=== PATIENT | female | born 1965 | race Caucasian/White ===

== ENCOUNTER 2020-05-31 23:55 | Emergency (ER) | payer BC ==
[~2020-05-31] VITALS: Ht 157.5 cm; Wt 54.0 kg
--- NOTE | 2020-06-01 00:24 | NUR ---
PT IM ROOM, C/O 15+ EPISODES OF VOMITING AFTER CHEMO TODAY FOR BREAST CANCER
[2020-06-01] MEDS ORDERED: ONDANSETRON 2MG/ML, 2ML ONE (00:30)
[2020-06-01] MEDS ORDERED: SODIUM CHLORIDE 0.9% 1,000ML IVBOLUS ONE (01:00)
[2020-06-01] MEDS ORDERED: ONDANSETRON 2MG/ML, 2ML IVPush ONE (01:00)
[2020-06-01 01:03] LABS: MEAN CORPUSCULAR HEMOGLOBIN 29.7 pg (27.0-34.8); MEAN CORPUSCULAR HGB CONC 33.3 g/dL (32.4-35.8); MEAN CORPUSCULAR VOLUME 89.3 fL (80-100); MEAN PLATELET VOLUME 7.7 fL (7.4-10.4); PLATELET COUNT 294 x10^3/uL (130-400); RED BLOOD COUNT 4.79 x10^6/uL (3.82-5.3); RED CELL DISTRIBUTION WIDTH 13.2 % (9.6-15.2)
[2020-06-01 01:17] LABS: ALANINE AMINOTRANSFERASE 25 U/L (12-78); ALBUMIN 4.4 g/dL (3.4-5.0); ANION GAP 11 mmol/L (5-15); CALCIUM 9.7 mg/dL (8.5-10.1); CHLORIDE 105 mmol/L (98-107); CREATININE 0.79 mg/dL (0.55-1.02)
--- NOTE | 2020-06-01 01:18 | NUR ---
REPORT RECEIVED FROM JELENA DRIVER
[2020-06-01 01:21] LABS: ALKALINE PHOSPHATASE 86 U/L (45-117); BILIRUBIN,TOTAL 0.5 mg/dL (0.2-1.0); MD YES; TOTAL PROTEIN 8.3 g/dL (6.4-8.2); TROPONIN I < 0.015 ng/mL (0.000-0.045)
[2020-06-01 01:25] LABS: <PLATELET ESTIMATE> ADEQUATE; <PLT MORPHOLOGY> NORMAL PLT MORPH; <RBC MORPHOLOGY> NORMAL; BAND#(MANUAL) 0.75 x10^3/uL; BANDS%(MANUAL) 5 % (0-7); LYMPH#(MANUAL) 0.75 x10^3/uL (1-3.4); LYMPHS% (MANUAL) 5 % (22-44); MONOS% (MANUAL) 4 % (2-9); SEGS% (MANUAL) 86 % (42-75)
--- NOTE | 2020-06-01 01:41 | NUR ---
PATIENT UP TO RESTROOM, TOLERATED WELL. PATIENT ADMITS TO FEELING BETTER.
[2020-06-01] MEDS ORDERED: ONDANSETRON ODT 4 MG ONE (02:38)
[2020-06-01 02:46] VITALS: BP 124/84
[2020-06-01] MEDS ORDERED: ONDANSETRON ODT 4 MG PO ONE (03:00)
== END 2020-06-01 02:48 | disposition home or self-care (01) ==
LOC: ED 06-01 02:15
DX: C50.919 Malignant neoplasm of unspecified site of unspecified female breast (principal); R11.2 Nausea with vomiting, unspecified; R00.0 Tachycardia, unspecified
CPT/HCPCS: 36415; 80053; 83690; 84484; 85025; 93005; 96361; 96374; 99284; J2405; J7030; Q0162